=== PATIENT | female | born 1980 | race Two or more races ===

== ENCOUNTER 2024-12-02 14:47 | Inpatient (IN) | payer MEDICAID ==
[~2024-12-02] VITALS: Ht 175.3 cm; Wt 73.0 kg
--- NOTE | 2024-12-02 15:40 | ED.PDOC ---
History of Present Illness HPI Comments Patient is a 44-year-old female without any significant past medical history presented to the ED with a chief complaint of 2 days of abdominal pain. Patient reports with the pain is mostly in the left lower quadrant, radiating to the left lower flank and in the suprapubic area started Sunday night associated with multiple episodes of watery diarrhea, no blood in the stool was reported. Patient did have associated nausea and vomiting initially nonbilious, nonbloody. She denied any fever or chills. No recent sick contacts, no recent antibiotic use. Patient denied any history of abdominal surgeries before with a bilateral tubal ligation. On arrival to the ED patient had a temperature of 99.3 F, tachycardic with heart rate 114 and blood pressure 130/78 mmHg. Chief Complaint: Abdominal Pain Time Seen by MD: 15:02 Allergies: Coded Allergies: NO KNOWN ALLERGIES (Unverified , 12/02/24) Past Medical History PAST MEDICAL HISTORY: Denies Surgical History: BTL BAND DIRECTOR History: No Pertinent BAND DIRECTOR History Family History Family History: Reviewed,noncontributory to illness, No family hx of Cancer, No family hx of DM, No family hx of Heart nba, No family hx of HTN, No family hx ofKidney nba, No family hx of Liver nba, No family hx of Lung nba, No family hx of Stroke Social History Smoker: Non-Smoker Alcohol: Occasionally Drugs: Denies Drug Use Lives In: Home Constitutional: denies: chills, diaphoresis, fatigue, fever, malaise, sweats, weakness, others EENTM: denies: blurred vision, double vision, ear bleeding, ear discharge, ear drainage, ear pain, ear ringing, eye pain, eye redness, hearing loss, mouth pain, mouth swelling, nasal discharge, nose bleeding, nose congestion, nose pain, photophobia, tearing, throat pain, throat swelling, voice changes, others Respiratory: denies: cough, hemoptysis, orthopnea, SOB at rest, shortness of breath, SOB with excertion, stridor, wheezing, others Cardiovascular: denies: chest pain, dizzy spells, diaphoresis, Dyspnea on exertion, edema, irregular heart beat, left arm pain, lightheadedness, palpitations, PND, syncope, others Gastrointestinal: reports: abdominal pain, diarrhea, nausea, vomiting Genitourinary: denies: abnormal vagina bleeding, burning, dyspareunia, dysuria, flank pain, frequency, hematuria, incontinence, pain, , vagina discharge, urgency, others Neurological: denies: dizziness, fainting, headache, left sided numbness, left sided weakness, numbness, paresthesia, pre-existing deficit, right sided numbness, right sided weakness, seizure, speech problems, tingling, tremors, weakness, others Musculoskeletal: denies: back pain, gout, joint pain, joint swelling, muscle pain, muscle stiffness, neck pain, others Integumetry: denies: bruises, change in color, change in hair/nails, dryness, laceration, lesions, lumps, rash, wounds, others Allergic/Immunocompromised: denies: Difficulty Healing, Frequent Infections, Hives, Itching, others Hematologic/Lymphatic: denies: anemia, blood clots, easy bleeding, easy bruising, swollen glands, others Endocrine: denies: excessive hunger, excessive sweating, excessive thirst, excessive urination, flushing, intolerance to cold, intolerance to heat, unexplained weight gain, unexplained weight loss, others Psychiatric: denies: anxiety, bipolar disorder, depression, hopeless, panic disorder, schizophrenia, sleepless, suicidal, others Physical Exam General Appearance: Mild Distress HEENT: Normal ENT Inspection, Pharynx Normal, TMs Normal Neck: Full Range of Motion, Non-Tender, Normal, Normal Inspection Respiratory: Chest Non-Tender, Lungs Clear, No Accessory Muscle Use, No Respiratory Distress, Normal Breath Sounds Cardiovascular: No Edema, No JVD, No Murmur, No Gallop, Normal Peripheral Pulses, Regular Rate/Rhythm Breast Exam: Deferred Gastrointestinal: Guarding, LLQ, Suprapubic, Tenderness Genitalia: Deferred Pelvic: Deferred Rectal: Deferred Extremities: No calf tenderness, Normal capillary refill, Normal inspection, Normal range of motion, Non-tender, No pedal edema Neurologic: Alert, med spa manager II-XII nml as Tested, No Motor Deficits, Normal Affect, Normal Mood, No Sensory Deficits Cerebellar Function: Normal Reflexes: Normal Skin: Dry, Normal Color, Warm Peripheral Pulses: 2+ carotid (R), 2+ carotid (L), 2+ femoral (R), 2+ femoral (L), 2+ dorsalis pedis (R), 2+ dorsalis pedis (L), 2+ Radial (R), 2+ Radial (L) Lymphatic: No Adenopathy Was a procedure done? Was a procedure done?: No Differential Dx Considerations may include: Acute diverticulitis, acute colitis, gastroenteritis, intraperitoneal abscess X-Ray, Labs, Meds, VS Vital Signs Date Time Temp Pulse Resp B/P (MAP) Pulse Ox O2 Delivery O2 Flow Rate FiO2 12/02/24 15:10 99.3 114 18 130/78 (95) 98 99.3 Lab Test 12/02/24 15:54 12/02/24 14:50 Range/Units White Blood Count 16.6 H 4.4-10.8 10^3/uL Red Blood Count 4.71 4.0-5.20 10^6/uL Hemoglobin 14.4 12.2-16.2 g/dL Hematocrit 43.8 36.0-46.0 % Mean Corpuscular Volume 93.2 80.0-100.0 fL Mean Corpuscular Hemoglobin 30.6 28.0-32.0 pg Mean Corpuscular Hemoglobin Concent 32.8 32.0-36.0 g/dL Red Cell Distribution Width 13.9 11.8-14.3 % Platelet Count 300 140-450 10^3/uL Mean Platelet Volume 10.0 6.9-10.8 fL Neutrophils (%) (Auto) 81.0 H 37.0-80.0 % Lymphocytes (%) (Auto) 10.8 10.0-50.0 % Monocytes (%) (Auto) 7.8 0.0-12.0 % Eosinophils (%) (Auto) 0.1 0.0-7.0 % Basophils (%) (Auto) 0.3 0.0-2.0 % Neutrophils # (Auto) 13.4 H 1.6-8.6 10 ^3/uL Lymphocytes # (Auto) 1.8 0.4-5.4 10 ^3/uL Monocytes # (Auto) 1.3 0-1.3 10 ^3/uL Eosinophils # (Auto) 0 0-0.8 10 ^3/uL Basophils # (Auto) 0.1 0-0.2 10 ^3/uL Nucleated Red Blood Cells 0.0 % Sodium Level 138 136-145 mmol/L Potassium Level 3.6 3.5-5.1 mmol/L Chloride Level 105 98-107 mmol/L Carbon Dioxide Level 25 20-31 mmol/L Anion Gap 8 5-15 Blood Urea Nitrogen 7 L 9-23 mg/dL Creatinine 0.85 0.550-1.02 mg/dL Glomerular Filtration Rate Calc 86 >90 mL/min BUN/Creatinine Ratio 8.2 L 10.0-20.0 Serum Glucose 99 74-106 mg/dL Lactic Acid Level 0.8 0.4-2.0 mmol/L Calcium Level 10.1 8.7-10.4 mg/dL Beta HCG, Quantitative 0.6 L 1.5-4.2 mIU/mL Urine Color Yellow Yellow Urine Clarity Turbid H Clear Urine pH 6.0 5.0-9.0 Urine Specific [place] 1.029 1.001-1.035 Urine Protein Trace H Negative Urine Ketones 3+ H Negative Urine Blood Trace H Negative /uL Urine Nitrite Negative Negative Urine Bilirubin Negative Negative Urine Urobilinogen 2 H Negative mg/dL Urine Leukocyte Esterase Negative Negative /uL Urine RBC 4 0 - 4 /hpf Urine Microscopic WBC 2 0-5 /HPF Urine Squamous Epithelial Cells Few <5 /hpf Urine Bacteria Few H None Seen /hpf Urine Mucus Few None Seen Urine Glucose Normal Normal mg/dL Urine Test Negative Negative Patient 44-year-old female without any significant medical history presented to the ED with 2 days of abdominal pain in the left lower quadrant associated with diarrhea and nausea and vomiting. CT abdomen pelvis without contrast was ordered along with initial labs including CBC, BMP, urinalysis. CBC showed elevated WBC count with left shift, CT showed acute sigmoid diverticulitis with possible microperforation. Patient was put NPO, IV fluids, IV antibiotics with ceftriaxone and metronidazole and surgical consultation was placed. Patient was explained about her diagnosis and treatment and agreed to being admitted for further management. Time of 1ST Reevaluation: 19:30 Reevaluation 1ST: Unchanged Patient Education/Counseling: Diagnosis, Treatment Family Education/Counseling: No Family Present SEPSIS Sepsis Screen Physician Orders Ct Ab Pel Wo Con-No Oral Or Iv (12/02/24 15:26) Heplock Iv (12/02/24 ) Ceftriaxone 1gm/50ml D5w (Rocephin) (12/02/24 19:30) Metronidazole 500mg/100ml (Flagyl 500mg/ (12/02/24 19:30) Sodium Chloride 0.9% (12/02/24 19:30) Npo (Nothing By Mouth) Diet (12/03/24 Breakfast) * Surgical Consult (12/02/24 ) Vital Signs Date Time Temp Pulse Resp B/P (MAP) Pulse Ox O2 Delivery O2 Flow Rate FiO2 12/02/24 15:10 99.3 114 18 130/78 (95) 98 99.3 Laboratory Tests Test 12/02/24 15:54 Lactic Acid Level 0.8 mmol/L (0.4-2.0) White Blood Count 16.6 10^3/uL (4.4-10.8) H Departure 1 Departure Time of Disposition: 19:51 Impression: Primary Impression: Diverticulitis of intestine Additional Impression: Diverticulitis large intestine Disposition: ADMITTED INPATIENT Condition: Stable Critical Care Note Critical Care Time?: No Stability Stability form required: No Heart Score Heart Score: Heart Score Response (Comments) Value History N/A 0 EKG N/A 0 Age N/A 0 Risk Factors N/A 0 Troponin N/A 0 Total 0 CLAY MANZANARES RESIDENT Dec 02, 2024 15:40
[2024-12-02 16:09] LABS: Hematocrit 43.8 % (36.0-46.0); Hemoglobin 14.4 g/dL (12.2-16.2); Mean Corpuscular Hemoglobin 30.6 pg (28.0-32.0); Mean Corpuscular Volume 93.2 fL (80.0-100.0); Nucleated Red Blood Cells % 0.0 %
[2024-12-02 16:18] LABS: Chloride 105 mmol/L (98-107); Potassium 3.6 mmol/L (3.5-5.1); Sodium 138 mmol/L (136-145)
[2024-12-02 16:19] LABS: Anion Gap 8 (5-15); Calcium 10.1 mg/dL (8.7-10.4); Carbon Dioxide 25 mmol/L (20-31)
[2024-12-02 16:24] LABS: BUN/Creatinine Ratio 8.2 (10.0-20.0); Glucose 99 mg/dL (74-106)
[2024-12-02 16:26] LABS: Blood Urea Nitrogen 7 mg/dL (9-23)
[2024-12-02 18:17] LABS: Urine Protein, UAD TRACE (Negative)
--- NOTE | 2024-12-02 19:21 | DVH ---
Exam: CT CT AB PEL WO CON-NO ORAL OR IV History: LLQ, suprapubic pain , diarrhoea Comparison Study: None TECHNIQUE: Multidetector CT of the abdomen was performed from lung bases to pubic symphysis. Imaging was performed without IV contrast. Axial, coronal and sagittal multiplanar reformats were obtained fr om the axial data set by the technologist. Radiation Dose Information: CT Dose: CTDI volume is 8.97 mGy. Dose-length product is 476.35 mGy*cm FINDINGS: Evaluation of solid organs is limited due to lack of intravenous contrast use. Findings: Lung Bases: No acute or significant lung base finding. Normal heart size. No pleural or pericardial effusion. Liver: The liver is normal in size. No focal lesions. Gallbladder and Biliary Tree: Unremarkable Spleen: Unremarkable Pancreas: The pancreas is grossly normal in appearance. Adrenal Glands: Unremarkable Kidneys: Kidneys are grossly normal without calculi or hydronephrosis. Bladder: Grossly unremarkable for degree of distention. Bowel: The stomach is grossly normal in appearance. Acute sigmoid colon diverticulitis with extensive adjacent stranding and possible microperforation. No bowel obstruction, definite rupture, or adjacen t abscess. There is extensive underlying colonic diverticulosis. Normal appendix. Ascites: Absent Lymphadenopathy: No mesenteric, retroperitoneal or periportal lymphadenopathy. Abdominal Wall and Mesentery: Unremarkable. Vasculature: The visualized abdominal aorta is normal in size and caliber. Evaluation of abdominal a nd pelvic vessels is limited due to lack of intravenous contrast. Pelvic Organs: Unremarkable. trace pelvic free fluid. Musculoskeletal: No aggressive focal bony lesions, acute fractures or dislocation. Soft tissues: Unremarkable IMPRESSION: 1. Acute sigmoid colon diverticulitis with extensive adjacent stranding and possible microperforation . No bowel obstruction, definite rupture, or adjacent abscess. There is extensive underlying colonic diverticulosis. Radiation optimization: All CT scans at this facility use at least one of these dose optimization dion hniques: automated exposure control mA and/or kV adjustment per patient size (includes targeted exam s where dose is matched to clinical indication) or iterative reconstruction.
[2024-12-02] MEDS: cefTRIAXone 1GM/50ML D5W 50 ML IV ONE (20:18)
[2024-12-02] MEDS: SODIUM CHLORIDE 0.9% 1,000 ML IV ONE ×2 (20:19→20:47)
[2024-12-02] MEDS: MORPHINE SULFATE INJ 2 MG/ml SYRG IV PRN (22:51)
[2024-12-02] MEDS: ONDANSETRON HCL 4 MG/2 ML VIAL IV PRN (22:52)
[2024-12-03] VITALS (7 sets, daily range): BP systolic 105–121; BP diastolic 59–70; PULSE 75–89; RESP 16–20; TEMP 97.9–98.4; O2SAT 95–100
--- NOTE | 2024-12-03 01:15 | DVHHP2 ---
History of Present Illness Reason for Visit: Abdominal pain History of Present Illness 44-year-old female presents for evaluation of abdominal pain. Patient presents with a two day history of sharp left lower quadrant abdominal pain with associated diarrhea, nausea and vomiting. No fever or chills. No other acute complaints reported. Past Medical History Denies Past Surgical History BTL Family History Noncontributory Smoke: No ALCOHOL: none Drugs: None Lives: with Family Review of Systems Review of Systems Review of systems are currently negative otherwise addressed in HPI. Allergies: Coded Allergies: NO KNOWN ALLERGIES (Unverified , 12/02/24) Medications Current Medications Medications Dose Ordered Sig/Roderick Route Start Time Stop Time Status Last Admin Dose Admin Ceftriaxone Sodium 50 ml @ 100 mls/hr DAILY@09 IV 12/03/24 09:00 Metronidazole 100 ml @ 100 mls/hr Q8HR IV 12/03/24 06:00 Pantoprazole Sodium 40 mg DAILY IV 12/03/24 10:00 Ondansetron HCl 4 mg Q4HP PRN IV 12/02/24 20:15 12/02/24 22:52 4 MG Morphine Sulfate 2 mg Q4HPRN PRN IV 12/02/24 20:15 12/02/24 22:51 2 MG Exam Vital Signs Vital Signs Date Time Temp Pulse Resp B/P (MAP) Pulse Ox O2 Delivery O2 Flow Rate FiO2 12/02/24 23:33 92 16 137/69 12/02/24 23:29 90.0 98 90.0 12/02/24 22:38 Room Air Exam Gen: 44-year-old female in mild distress Skin: Warm, dry, normal color and texture, no rash. HEENT: Normocephalic atraumatic, mucous membranes moist and pink. Neck: Cervical and supraclavicular nodes normal without enlargement, trachea is midline, thyroid gland is normal without masses. Pulmonary: Clear to auscultation and percussion bilaterally. Cardiac: Regular rate and rhythm. No murmur Abdomen: Soft, left lower quadrant tenderness, nondistended, bowel sounds present all 4 quadrants, no guarding, no rigidity, no organomegaly. Extremities: No cyanosis, clubbing, no edema Neuro: Cranial nerves II through XII grossly intact, normal affect and speech, no focal motor deficits. Labs/Xrays AGE / SEX: 44 / F ADM STATUS: REG ER SERVICE [id number] ORDERING PHYSICIAN: CLAY MANZANARES RESIDENT PROCEDURE(s): ABPL - CT AB PEL WO CON-NO ORAL OR IV REASON: LLQ, suprapubic pain , diarrhoea ORDER NUMBER(s): [id number], ACCESSION NUMBER(s): [id number] Exam: CT CT AB PEL WO CON-NO ORAL OR IV History: LLQ, suprapubic pain , diarrhoea Comparison Study: None TECHNIQUE: Multidetector CT of the abdomen was performed from lung bases to pubic symphysis. Imaging was performed without IV contrast. Axial, coronal and sagittal multiplanar reformats were obtained from the axial data set by the technologist. Radiation Dose Information: CT Dose: CTDI volume is 8.97 mGy. Dose-length product is 476.35 mGy*cm FINDINGS: Evaluation of solid organs is limited due to lack of intravenous contrast use. Findings: Lung Bases: No acute or significant lung base finding. Normal heart size. No pleural or pericardial effusion. Liver: The liver is normal in size. No focal lesions. Gallbladder and Biliary Tree: Unremarkable Spleen: Unremarkable Pancreas: The pancreas is grossly normal in appearance. Adrenal Glands: Unremarkable Kidneys: Kidneys are grossly normal without calculi or hydronephrosis. Bladder: Grossly unremarkable for degree of distention. Bowel: The stomach is grossly normal in appearance. Acute sigmoid colon diverticulitis with extensive adjacent stranding and possible microperforation. No bowel obstruction, definite rupture, or adjacent abscess. There is extensive underlying colonic diverticulosis. Normal appendix. Ascites: Absent Lymphadenopathy: No mesenteric, retroperitoneal or periportal lymphadenopathy. Abdominal Wall and Mesentery: Unremarkable. Vasculature: The visualized abdominal aorta is normal in size and caliber. Evaluation of abdominal and pelvic vessels is limited due to lack of intravenous contrast. Pelvic Organs: Unremarkable. trace pelvic free fluid. Musculoskeletal: No aggressive focal bony lesions, acute fractures or dislocation. Soft tissues: Unremarkable IMPRESSION: 1. Acute sigmoid colon diverticulitis with extensive adjacent stranding and possible microperforation. No bowel obstruction, definite rupture, or adjacent abscess. There is extensive underlying colonic diverticulosis. Radiation optimization: All CT scans at this facility use at least one of these dose optimization techniques: automated exposure control mA and/or kV adjustment per patient size (includes targeted exams where dose is matched to clinical indication) or iterative reconstruction. Labs Test 12/02/24 15:54 12/02/24 14:50 Range/Units White Blood Count 16.6 H 4.4-10.8 10^3/uL Red Blood Count 4.71 4.0-5.20 10^6/uL Hemoglobin 14.4 12.2-16.2 g/dL Hematocrit 43.8 36.0-46.0 % Mean Corpuscular Volume 93.2 80.0-100.0 fL Mean Corpuscular Hemoglobin 30.6 28.0-32.0 pg Mean Corpuscular Hemoglobin Concent 32.8 32.0-36.0 g/dL Red Cell Distribution Width 13.9 11.8-14.3 % Platelet Count 300 140-450 10^3/uL Mean Platelet Volume 10.0 6.9-10.8 fL Neutrophils (%) (Auto) 81.0 H 37.0-80.0 % Lymphocytes (%) (Auto) 10.8 10.0-50.0 % Monocytes (%) (Auto) 7.8 0.0-12.0 % Eosinophils (%) (Auto) 0.1 0.0-7.0 % Basophils (%) (Auto) 0.3 0.0-2.0 % Neutrophils # (Auto) 13.4 H 1.6-8.6 10 ^3/uL Lymphocytes # (Auto) 1.8 0.4-5.4 10 ^3/uL Monocytes # (Auto) 1.3 0-1.3 10 ^3/uL Eosinophils # (Auto) 0 0-0.8 10 ^3/uL Basophils # (Auto) 0.1 0-0.2 10 ^3/uL Nucleated Red Blood Cells 0.0 % Sodium Level 138 136-145 mmol/L Potassium Level 3.6 3.5-5.1 mmol/L Chloride Level 105 98-107 mmol/L Carbon Dioxide Level 25 20-31 mmol/L Anion Gap 8 5-15 Blood Urea Nitrogen 7 L 9-23 mg/dL Creatinine 0.85 0.550-1.02 mg/dL Glomerular Filtration Rate Calc 86 >90 mL/min BUN/Creatinine Ratio 8.2 L 10.0-20.0 Serum Glucose 99 74-106 mg/dL Lactic Acid Level 0.8 0.4-2.0 mmol/L Calcium Level 10.1 8.7-10.4 mg/dL Beta HCG, Quantitative 0.6 L 1.5-4.2 mIU/mL Urine Color Yellow Yellow Urine Clarity Turbid H Clear Urine pH 6.0 5.0-9.0 Urine Specific [place] 1.029 1.001-1.035 Urine Protein Trace H Negative Urine Ketones 3+ H Negative Urine Blood Trace H Negative /uL Urine Nitrite Negative Negative Urine Bilirubin Negative Negative Urine Urobilinogen 2 H Negative mg/dL Urine Leukocyte Esterase Negative Negative /uL Urine RBC 4 0 - 4 /hpf Urine Microscopic WBC 2 0-5 /HPF Urine Squamous Epithelial Cells Few <5 /hpf Urine Bacteria Few H None Seen /hpf Urine Mucus Few None Seen Urine Glucose Normal Normal mg/dL Urine Test Negative Negative Assessment/Plan Assessment/Plan Assessment Acute abdominal pain Acute diverticulitis with possible microperforation Leukocytosis Plan Admit the patient to [facility] to the hospitalist Surgical consult Rocephin/Flagyl NPO Maintenance IV fluids Pain management Continue treatment per orders. Plan discussed with: Patient My Orders Orders - ZULLY BOCANEGRA Procedure Category Date Status Time Admit ADMIT 12/02/24 Transmitted 19:56 Ceftriaxone 1gm/50ml PHA 12/03/24 In Process D5w (Rocephin) 09:00 D5w/Sod Chlo 0.9% PHA 12/02/24 In Process (D5w Ns 0.9%) 20:15 Pantoprazole PHA 12/03/24 In Process (Protonix) 10:00 Basic Metabolic Panel LAB 12/03/24 Logged 04:00 Ondansetron Hcl PHA 12/02/24 In Process (Zofran) 20:15 Complete Blood Count LAB 12/03/24 Logged 04:00 Condition: Stable MIRIAM 12/02/24 In Process 20:02 Bedrest With Bathroom MIRIAM 12/02/24 In Process Privileg 20:02 Morphine Sulfate PHA 12/02/24 In Process Injection 20:15 Metronidazole PHA 12/03/24 In Process 500mg/100ml (Flagyl 06:00 Date of Service: Dec 02, 2024 Billing Provider: ZULLY BOCANEGRA Common Visit Codes: [id number] INP/OBS CARE (MOD) ZULLY BOCANEGRA [facility] Dec 03, 2024 01:15
[2024-12-03] MEDS: D5W/SOD CHLO 0.9% 1,000 ML IV ONE (02:15)
[2024-12-03 04:52] LABS: Hematocrit 36.6 % (36.0-46.0); Hemoglobin 12.2 g/dL (12.2-16.2); Mean Corpuscular Hemoglobin 31.1 pg (28.0-32.0); Mean Corpuscular Volume 93.0 fL (80.0-100.0); Nucleated Red Blood Cells % 0.1 %
[2024-12-03 04:56] LABS: Chloride 106 mmol/L (98-107); Potassium 3.5 mmol/L (3.5-5.1); Sodium 139 mmol/L (136-145)
[2024-12-03 05:02] LABS: Glucose 98 mg/dL (74-106)
[2024-12-03 05:03] LABS: Calcium 8.6 mg/dL (8.7-10.4)
[2024-12-03 05:21] LABS: BUN/Creatinine Ratio 11.1 (10.0-20.0)
[2024-12-03 05:24] LABS: Blood Urea Nitrogen 8 mg/dL (9-23)
[2024-12-03 05:50] LABS: Anion Gap 9 (5-15); Carbon Dioxide 24 mmol/L (20-31)
[2024-12-03] MEDS: PANTOPRAZOLE 40 MG/10 ML VIAL INJ IV SCH (08:24)
[2024-12-03] MEDS: cefTRIAXone 1GM/50ML D5W 50 ML IV SCH (08:25)
--- NOTE | 2024-12-03 11:52 | DVHPNRES ---
Progress Note Date Seen: Dec 03, 2024 Resident Creating Document: CATE CEVALLOS RESIDENT Medical Necessity Reason Pt with a Central, PICC or Fol: No Subjective Review of Systems 44-year-old female with no significant past medical history presents for evaluation of 2 day history of Left lower quadrant abdominal pain, which was sudden in onsent and 8-10/10 intensity, radiating to the back associated with watery diarrhea, no stool was reported. She also had nonbloody, vomiting and nausea, and dizziness. She denies any fever, chills, headache. She denies any sick contacts, eating outside and no recent travel. She denies any history of constipation and has regular bowel movements. She denies smoking, drug use, uses weed gummies and drinks socially 2 glasses of wine per week. Surgery was consulted. Objective vital signs Vital Sign Date Time Temp Pulse Resp B/P (MAP) Pulse Ox O2 Delivery O2 Flow Rate FiO2 12/03/24 08:31 98.1 89 16 113/63 (80) 98.1 12/03/24 05:00 98 12/03/24 02:22 Room Air* 0 21 Total Intake and Output 12/02/24 12/02/24 12/03/24 15:00 23:00 07:00 Intake Total 2150 ml 100 ml Output Total 2 ml Balance 2150 ml 98 ml medications Current Medications Medications Dose Ordered Sig/Roderick Route Start Time Stop Time Status Last Admin Dose Admin Ceftriaxone Sodium 50 ml @ 100 mls/hr DAILY@09 IV 12/03/24 09:00 12/03/24 08:25 100 MLS/HR Metronidazole 100 ml @ 100 mls/hr Q8HR IV 12/03/24 06:00 12/03/24 05:34 100 MLS/HR Pantoprazole Sodium 40 mg DAILY IV 12/03/24 10:00 12/03/24 08:24 40 MG Ondansetron HCl 4 mg Q4HP PRN IV 12/02/24 20:15 12/02/24 22:52 4 MG Morphine Sulfate 2 mg Q4HPRN PRN IV 12/02/24 20:15 12/03/24 08:25 2 MG Dextrose/Sodium Chloride 1,000 ml @ 100 mls/hr Q10H IV 12/03/24 11:30 UNV laboratory and microbiology Laboratory Tests 12/03/24 04:24 Test 12/03/24 04:24 Range/Units Serum Glucose 98 74-106 mg/dL Problem List/Assessment/Plan Problem List/Assessment/Plan #Acute abdominal pain #Acute diverticulitis with possible microperforation #Leukocytosis rule out SIRS - CT Abd/pelvis- Acute sigmoid colon diverticulitis with extensive adjacent stranding and possible microperforation. No bowel obstruction, definite rupture, or adjacent abscess. There is extensive underlying colonic diverticulosis. - patient is NPO - Iv fluids given - Pending surgical consult - IV Ceftriaxone - IV Metronidazolw - Pain managment PUD PPX: Protonix DVT PPX: Abulatory Plan discussed with patient for 23 mins: Full code Case discussed with Dr. Dow Plan discussed with: Patient Date of Service: Dec 03, 2024 Billing Provider: HAZEL DOW MD Common Visit Codes: [id number] INP/OBS CARE(HIGH) CATE CEVALLOS RESIDENT Dec 03, 2024 11:52 HAZEL DOW MD Dec 03, 2024 16:31
[2024-12-03] MEDS: D5W/SOD CHL 0.45% 1,000 ML IV SCH (13:50)
[2024-12-03 19:16] LABS: Hematocrit 37.1 % (36.0-46.0); Hemoglobin 12.5 g/dL (12.2-16.2); Mean Corpuscular Hemoglobin 31.3 pg (28.0-32.0); Mean Corpuscular Volume 93.2 fL (80.0-100.0); Nucleated Red Blood Cells % 0.0 %
[2024-12-03 19:24] LABS: Chloride 107 mmol/L (98-107); Potassium 3.6 mmol/L (3.5-5.1); Sodium 140 mmol/L (136-145)
[2024-12-03 19:25] LABS: Anion Gap 9 (5-15); Calcium 9.4 mg/dL (8.7-10.4); Carbon Dioxide 24 mmol/L (20-31)
[2024-12-03 19:30] LABS: BUN/Creatinine Ratio 7.6 (10.0-20.0); Glucose 98 mg/dL (74-106)
[2024-12-03 19:32] LABS: Blood Urea Nitrogen 5 mg/dL (9-23)
[2024-12-04] VITALS (7 sets, daily range): BP systolic 102–123; BP diastolic 66–78; PULSE 70–82; RESP 18; TEMP 97.9–98.6; O2SAT 96–100
[2024-12-04] MEDS: KETOROLAC TROMETH 30 MG/ML 1ML VIAL IV PRN (11:00)
--- NOTE | 2024-12-04 11:18 | DVHPNRES ---
Progress Note Date Seen: Dec 04, 2024 Resident Creating Document: CATE CEVALLOS RESIDENT Medical Necessity Reason Pt with a Central, PICC or Fol: No Subjective Review of Systems 44-year-old female with no significant past medical history presents for evaluation of 2 day history of Left lower quadrant abdominal pain, which was sudden in onsent and was 8-10/10 intensity, radiating to the back associated with watery diarrhea, no stool was reported. She also had nonbloody, vomiting and nausea, and dizziness. She denies any fever, chills, headache. She denies any sick contacts, eating outside and no recent travel. She denies any history of constipation and has regular bowel movements. Surgery was consulted. Patient seen at bedside. Patient reports she feels much better than yesterday. Patient reports of nausea, dizziness today, and mild left lower quadrant pain on palpation which is stabbing in nature and "comes and goes". last bowel movement was 2 days ago. Awaiting Surgical consultation. Objective vital signs Vital Sign Date Time Temp Pulse Resp B/P (MAP) Pulse Ox O2 Delivery O2 Flow Rate FiO2 12/04/24 09:00 98.2 78 18 110/73 (85) 100 98.2 12/04/24 07:39 Room Air* 0 21 Total Intake and Output 12/03/24 12/03/24 12/04/24 15:00 23:00 07:00 Intake Total 150 ml 800 ml Balance 150 ml 800 ml medications Current Medications Medications Dose Ordered Sig/Roderick Route Start Time Stop Time Status Last Admin Dose Admin Ceftriaxone Sodium 50 ml @ 100 mls/hr DAILY@09 IV 12/03/24 09:00 12/04/24 08:31 100 MLS/HR Metronidazole 100 ml @ 100 mls/hr Q8HR IV 12/03/24 06:00 12/04/24 05:16 100 MLS/HR Pantoprazole Sodium 40 mg DAILY IV 12/03/24 10:00 12/04/24 08:30 40 MG Ondansetron HCl 4 mg Q4HP PRN IV 12/02/24 20:15 12/04/24 08:30 4 MG Dextrose/Sodium Chloride 1,000 ml @ 100 mls/hr Q10H IV 12/03/24 11:30 12/04/24 05:17 100 MLS/HR Ketorolac Tromethamine 15 mg Q6HPRN PRN IV 12/04/24 10:00 12/09/24 09:59 12/04/24 11:00 15 MG Examination General: Patient alert and oriented in person, place and time. Patient following commands. HEENT: Normocephalic, atraumatic, moist mucous membranes Respiratory/pulmonary: Clear lungs bilaterally, vesicular murmurs present in almost all lung de, no associated crackles or wheezes. Cardiovascular: Normal heart sounds S1 and S2 with no associated murmurs Abdomen: Abdomen nondistended, there is mild pain to palpation in Left lower Quadrant ,no palpable masses. Extremities: There is no peripheral edema present at the lower extremities. Peripheral Pulses: 3+ Radial (R). 3+ Radial (L). 3+ Dorsalis pedis (R). 3+ Dorsalis pedis(L) Skin: No rashes or pruritus, there is no sacral edema present at this time. Neurological: Intact cranial nerves with no focal neurologic deficits Nurse was there as a weight reduction specialist during examination laboratory and microbiology Laboratory Tests 12/03/24 19:02 Test 12/03/24 19:02 Range/Units Serum Glucose 98 74-106 mg/dL Labs and/or images reviewed: Labs reviewed by me, Image(s) reviewed by me Problem List/Assessment/Plan Problem List/Assessment/Plan #Acute abdominal pain likely from below #Acute diverticulitis with possible microperforation #Leukocytosis rule out SIRS - CT Abd/pelvis- Acute sigmoid colon diverticulitis with extensive adjacent stranding and possible microperforation. No bowel obstruction, definite rupture, or adjacent abscess. There is extensive underlying colonic diverticulosis. - patient is NPO - Iv fluids given - Pending surgical consult - IV Ceftriaxone - IV Metronidazole - Pain management as needed PUD PPX: Protonix DVT PPX: Ambulatory Goals of care discussed with patient for 20 min: Full code Case discussed with Dr. Hazel Plan discussed with: Patient, Other (RN) My Orders My Orders Orders - CATE CEVALLOS RESIDENT Procedure Category Date Status Time Ketorolac Injection PHA 12/04/24 In Process (Toradol Injection) 10:00 Dietary Evaluation Review Comments: 1) TPN if NPO >7 days 2) Advance to regular diet as medically feasible Expected Outcomes/Goals: To meet at least 75% estimated needs within 7 days GI symptoms to improve FU 2-3 days Addendum Addendum Addendum I was physically present for the yanez portions of the service provided to patient by THE RESIDENT. I have reviewed the documentation, discussed the case with resident and agree with the resident's documentation except as noted. Also the patient's clinical case was discussed with the patient's nurse. This medical document was created using an electronic medical record system with computerized dictation system. Although this document has been carefully reviewed, there might still be some phonetic and typographical errors. These areas are purely typographical due to imperfections of the software programs, and do not reflect any compromise in the patient's medical care. Late signature. Date of Service: Dec 04, 2024 Billing Provider: ALBERT HAZEL MD Common Visit Codes: [id number] INP/OBS CARE(HIGH) Secondary Visit Codes: [id number] CARE PLAN 30 MINUTES (20 minutes) CATE CEVALLOS RESIDENT Dec 04, 2024 11:18 ALBERT HAZEL MD Dec 05, 2024 04:26
--- NOTE | 2024-12-04 18:10 | DVHINCON2 ---
Date of service: Dec 04, 2024 Family History: Patient reports no known family medical history. Allergies: Coded Allergies: NO KNOWN ALLERGIES (Unverified , 12/02/24) Home Meds No Active Prescriptions or Reported Meds Current Medications Current Medications Medications (Trade) Dose Ordered Sig/Roderick Route PRN Reason Start Time Stop Time Status Last Admin Ketorolac Tromethamine (Toradol Injection) 15 mg Q6HPRN PRN IV MODERATE PAIN (4-6 PAIN SCALE) 12/04/24 10:00 12/09/24 09:59 12/04/24 11:00 Vital Signs Vital Signs Date Time Temp Pulse Resp B/P (MAP) Pulse Ox O2 Delivery O2 Flow Rate FiO2 12/04/24 17:00 98.0 77 18 108/66 (80) 98 98.0 12/04/24 07:39 Room Air* 0 21 Labs/Diagnostic Data Labs Test 12/03/24 19:02 12/02/24 15:54 12/02/24 14:50 Range/Units White Blood Count 8.2 4.4-10.8 10^3/uL Red Blood Count 3.98 L 4.0-5.20 10^6/uL Hemoglobin 12.5 12.2-16.2 g/dL Hematocrit 37.1 36.0-46.0 % Mean Corpuscular Volume 93.2 80.0-100.0 fL Mean Corpuscular Hemoglobin 31.3 28.0-32.0 pg Mean Corpuscular Hemoglobin Concent 33.6 32.0-36.0 g/dL Red Cell Distribution Width 13.4 11.8-14.3 % Platelet Count 258 140-450 10^3/uL Mean Platelet Volume 9.8 6.9-10.8 fL Neutrophils (%) (Auto) 67.5 37.0-80.0 % Lymphocytes (%) (Auto) 22.9 10.0-50.0 % Monocytes (%) (Auto) 7.9 0.0-12.0 % Eosinophils (%) (Auto) 1.2 0.0-7.0 % Basophils (%) (Auto) 0.5 0.0-2.0 % Neutrophils # (Auto) 5.5 1.6-8.6 10 ^3/uL Lymphocytes # (Auto) 1.9 0.4-5.4 10 ^3/uL Monocytes # (Auto) 0.6 0-1.3 10 ^3/uL Eosinophils # (Auto) 0.1 0-0.8 10 ^3/uL Basophils # (Auto) 0 0-0.2 10 ^3/uL Nucleated Red Blood Cells 0.0 % Sodium Level 140 136-145 mmol/L Potassium Level 3.6 3.5-5.1 mmol/L Chloride Level 107 98-107 mmol/L Carbon Dioxide Level 24 20-31 mmol/L Anion Gap 9 5-15 Blood Urea Nitrogen 5 L 9-23 mg/dL Creatinine 0.66 0.550-1.02 mg/dL Glomerular Filtration Rate Calc 110 >90 mL/min BUN/Creatinine Ratio 7.6 L 10.0-20.0 Serum Glucose 98 74-106 mg/dL Calcium Level 9.4 8.7-10.4 mg/dL Lactic Acid Level 0.8 0.4-2.0 mmol/L Beta HCG, Quantitative 0.6 L 1.5-4.2 mIU/mL Urine Color Yellow Yellow Urine Clarity Turbid H Clear Urine pH 6.0 5.0-9.0 Urine Specific [place] 1.029 1.001-1.035 Urine Protein Trace H Negative Urine Ketones 3+ H Negative Urine Blood Trace H Negative /uL Urine Nitrite Negative Negative Urine Bilirubin Negative Negative Urine Urobilinogen 2 H Negative mg/dL Urine Leukocyte Esterase Negative Negative /uL Urine RBC 4 0 - 4 /hpf Urine Microscopic WBC 2 0-5 /HPF Urine Squamous Epithelial Cells Few <5 /hpf Urine Bacteria Few H None Seen /hpf Urine Mucus Few None Seen Urine Glucose Normal Normal mg/dL Urine Test Negative Negative Assessment [id number] AFEBRILE VSS TENDER LLQ SIGMOID DIVERTICULITIS MANAGE CONSERVATIVELY' KEEP NPO IV ABX CLOSE OBSERVATION REPEAT CT SCAN 24 TO 48 TO DETERMINE THE NEED FOR SURGERY OR TO ADVANCE DIET BASED UPON ONGOING EVAL NURSE AT BEDSIDE Plan discussed with: Patient BRADEN GORE MD Dec 04, 2024 18:10
--- NOTE | 2024-12-04 18:12 | DVHINCON2 ---
DATE OF CONSULTATION: 12/04/2024 HISTORY OF PRESENT ILLNESS: This patient is 44 years old coming in with left lower quadrant pain for the past 3-4 days and she is now feeling much better. No nausea or vomiting. No constipation or diarrhea. No fever or chills. PAST MEDICAL HISTORY: No diabetes or hypertension. PAST SURGICAL HISTORY: Tubal ligation. PHYSICAL EXAMINATION: VITAL SIGNS: Afebrile. Stable signs. HEENT: With no evidence of pallor, cyanosis, or jaundice. NECK: Supple and nontender, with no thyromegaly or lymphadenopathy. CHEST AND LUNGS: Clear. HEART: Within normal limits. ABDOMEN: Soft. She is tender in the left lower quadrant with no rebound. EXTREMITIES: Unremarkable. NEUROLOGIC: Intact. CLINICAL IMPRESSION: Acute diverticulitis. PLAN: Plan would be to manage her conservatively and give her intravenous antibiotics and close observation. Consider emergent surgery based upon ongoing evaluation and repeat CT scan of the abdomen and pelvis to determine the need for surgery and/or to advance diet. MD CHAVA Tellez/KYLAH TID: [id number] RECEIPT: [id number] cc: Дмитрий Beaver NP
[2024-12-05] VITALS (7 sets, daily range): BP systolic 107–129; BP diastolic 66–90; PULSE 74–84; RESP 18; TEMP 98–98.4; O2SAT 97–100
--- NOTE | 2024-12-05 14:03 | DVHPN2 ---
Progress Note Date Seen: Dec 05, 2024 Medical Necessity Reason Pt with a Central, PICC or Fol: No Objective vital signs Vital Sign Date Time Temp Pulse Resp B/P (MAP) Pulse Ox O2 Delivery O2 Flow Rate FiO2 12/05/24 13:00 98.1 79 18 123/90 (101) 99 98.1 12/05/24 08:00 Room Air* 0 21 Total Intake and Output 12/04/24 12/04/24 12/05/24 15:00 23:00 07:00 Intake Total 50 ml 100 ml 400 ml Balance 50 ml 100 ml 400 ml medications Current Medications Medications Dose Ordered Sig/Roderick Route Start Time Stop Time Status Last Admin Dose Admin Ceftriaxone Sodium 50 ml @ 100 mls/hr DAILY@09 IV 12/03/24 09:00 12/05/24 09:50 100 MLS/HR Metronidazole 100 ml @ 100 mls/hr Q8HR IV 12/03/24 06:00 12/05/24 06:00 100 MLS/HR Pantoprazole Sodium 40 mg DAILY IV 12/03/24 10:00 12/05/24 09:50 40 MG Ondansetron HCl 4 mg Q4HP PRN IV 12/02/24 20:15 12/04/24 08:30 4 MG Dextrose/Sodium Chloride 1,000 ml @ 100 mls/hr Q10H IV 12/03/24 11:30 12/04/24 05:17 100 MLS/HR Ketorolac Tromethamine 15 mg Q6HPRN PRN IV 12/04/24 10:00 12/09/24 09:59 12/04/24 20:11 15 MG laboratory and microbiology Laboratory Tests 12/03/24 19:02 Test 12/03/24 19:02 Range/Units Serum Glucose 98 74-106 mg/dL Problem List/Assessment/Plan Problem List/Assessment/Plan AFEBRILE VSS ABD SOFT NON TENDER JOSÉ MIGUEL CLEAR LIQUIDS REPEAT CT SCAN ABD AND PELVIS WITH PO CONTRAST Plan discussed with: Patient Dietary Evaluation Review Comments: 1) TPN if NPO >7 days 2) Advance to regular diet as medically feasible Expected Outcomes/Goals: To meet at least 75% estimated needs within 7 days GI symptoms to improve FU 2-3 days BRADEN GORE MD Dec 05, 2024 14:03
--- NOTE | 2024-12-05 16:05 | DVHPNRES ---
Progress Note Date Seen: Dec 05, 2024 Resident Creating Document: CATE CEVALLOS RESIDENT Medical Necessity Reason Pt with a Central, PICC or Fol: No Subjective Review of Systems 44-year-old female with no significant past medical history presents for evaluation of 2 day history of Left lower quadrant abdominal pain, which was sudden in onsent and was 8-10/10 intensity, radiating to the back associated with watery diarrhea, no stool was reported. She also had nonbloody vomiting and nausea, and dizziness. She denies any fever, chills, headache. She denies any sick contacts, eating outside and no recent travel. She denies any history of constipation and has regular bowel movements. Surgery was consulted. Patient was seen at bedside. Patient is comfortable, alert x3, she reports mild nausea and mild left lower quadrant abdominal pain in morning but denies vomiting, headaches, dizziness. Patient has not had a bowel movement since 3 days. Surgery recommended :Repeat CT scan abdominal and pelvis with p.o. contrast Objective vital signs Vital Sign Date Time Temp Pulse Resp B/P (MAP) Pulse Ox O2 Delivery O2 Flow Rate FiO2 12/05/24 13:00 98.1 79 18 123/90 (101) 99 98.1 12/05/24 08:00 Room Air* 0 21 Total Intake and Output 12/04/24 12/04/24 12/05/24 15:00 23:00 07:00 Intake Total 50 ml 100 ml 400 ml Balance 50 ml 100 ml 400 ml medications Current Medications Medications Dose Ordered Sig/Roderick Route Start Time Stop Time Status Last Admin Dose Admin Ceftriaxone Sodium 50 ml @ 100 mls/hr DAILY@09 IV 12/03/24 09:00 12/05/24 09:50 100 MLS/HR Metronidazole 100 ml @ 100 mls/hr Q8HR IV 12/03/24 06:00 12/05/24 14:20 100 MLS/HR Pantoprazole Sodium 40 mg DAILY IV 12/03/24 10:00 12/05/24 09:50 40 MG Ondansetron HCl 4 mg Q4HP PRN IV 12/02/24 20:15 12/05/24 14:20 4 MG Dextrose/Sodium Chloride 1,000 ml @ 100 mls/hr Q10H IV 12/03/24 11:30 12/04/24 05:17 100 MLS/HR Ketorolac Tromethamine 15 mg Q6HPRN PRN IV 12/04/24 10:00 12/09/24 09:59 12/04/24 20:11 15 MG Examination General: Patient alert and oriented in person, place and time. Patient following commands. HEENT: Normocephalic, atraumatic, moist mucous membranes Respiratory/pulmonary: Clear lungs bilaterally, vesicular murmurs present in almost all lung de, no associated crackles or wheezes. Cardiovascular: Normal heart sounds S1 and S2 with no associated murmurs Abdomen: Abdomen nondistended, there is mild pain to palpation in LLQ, no palpable masses. Extremities: There is no peripheral edema present at the lower extremities. Peripheral Pulses: 3+ Radial (R). 3+ Radial (L). 3+ Dorsalis pedis (R). 3+ Dorsalis pedis(L) Skin: No rashes or pruritus, there is no sacral edema present at this time. Neurological: Intact cranial nerves with no focal neurologic deficits laboratory and microbiology Laboratory Tests 12/03/24 19:02 Test 12/03/24 19:02 Range/Units Serum Glucose 98 74-106 mg/dL Labs and/or images reviewed: Labs reviewed by me, Image(s) reviewed by me Problem List/Assessment/Plan Problem List/Assessment/Plan #Acute abdominal pain likely from below #Sepsis due to acute diverticulitis with possible microperforation #Leukocytosis due to sepsis - CT Abd/pelvis- Acute sigmoid colon diverticulitis with extensive adjacent stranding and possible microperforation. No bowel obstruction, definite rupture, or adjacent abscess. There is extensive underlying colonic diverticulosis. - patient changed from NPO to clear liquid diet - Iv fluids given - Surgery was consulted and recommenced REPEAT CT SCAN ABD AND PELVIS WITH PO CONTRAST - IV Ceftriaxone - IV Metronidazole - Pain management as needed PUD PPX: Protonix DVT PPX: Ambulatory Case discussed with Dr. Hazel Plan discussed with: Patient, Other (Nurse) Dietary Evaluation Review Comments: 1) TPN if NPO >7 days 2) Advance to regular diet as medically feasible Expected Outcomes/Goals: To meet at least 75% estimated needs within 7 days GI symptoms to improve FU 2-3 days Addendum Addendum Addendum I was physically present for the yanez portions of the service provided to patient by THE RESIDENT. I have reviewed the documentation, discussed the case with resident and agree with the resident's documentation except as noted. Also the patient's clinical case was discussed with the patient's nurse. This medical document was created using an electronic medical record system with computerized dictation system. Although this document has been carefully reviewed, there might still be some phonetic and typographical errors. These areas are purely typographical due to imperfections of the software programs, and do not reflect any compromise in the patient's medical care. Late signature. Date of Service: Dec 05, 2024 Billing Provider: ALBERT HAZEL MD Common Visit Codes: [id number] INP/OBS CARE(HIGH) CATE CEVALLOS RESIDENT Dec 05, 2024 16:05 ALBERT HAZEL MD Dec 06, 2024 15:06
--- NOTE | 2024-12-05 19:01 | DVH ---
Exam: CT CT AB PEL WITH ORAL CON ONLY History: Abdominal Pain Comparison Study: CT CT AB PEL WO CON-NO ORAL OR IV on DOS: 12/02/24 TECHNIQUE: Multidetector CT of the abdomen was performed from lung bases to pubic symphysis. Imaging was performed without IV contrast. Axial, coronal and sagittal multiplanar reformats were obtained fr om the axial data set by the technologist. Radiation Dose Information: CT Dose: CTDI volume is 8.35 mGy. Dose-length product is 396.87 mGy*cm Oral Omnipaque 1000 mL FINDINGS: Evaluation of solid organs is limited due to lack of intravenous contrast use. Findings: Lung Bases: No acute or significant lung base finding. Normal heart size. No pleural or pericardial effusion. Liver: The liver is normal in size. No focal lesions. Gallbladder and Biliary Tree: Unremarkable Spleen: Unremarkable Pancreas: The pancreas is grossly normal in appearance. Adrenal Glands: Unremarkable Kidneys: Kidneys are grossly normal without calculi or hydronephrosis. Bladder: Grossly unremarkable for degree of distention. Bowel: The stomach is grossly normal in appearance. Small bowel and colon are normal in caliber and d istribution. The appendix is not visualized; however, no secondary findings of acute appendicitis id entified. Ascites: Absent Lymphadenopathy: No mesenteric, retroperitoneal or periportal lymphadenopathy. Abdominal Wall and Mesentery: Unremarkable. Vasculature: The visualized abdominal aorta is normal in size and caliber. Evaluation of abdominal a nd pelvic vessels is limited due to lack of intravenous contrast. Pelvic Organs: Unremarkable Musculoskeletal: No aggressive focal bony lesions, acute fractures or dislocation. Soft tissues: Unremarkable IMPRESSION: 1. No findings of bowel obstruction. No extravasation of contrast to suggest bowel perforation. 2. Oral contrast noted from the stomach to the rectum. 3. No calcified gallstones 4. No free air or free fluid 5. No abnormal dilatation of the small bowel or colon. Radiation optimization: All CT scans at this facility use at least one of these dose optimization te chniques: automated exposure control mA and/or kV adjustment per patient size (includes targeted exa ms where dose is matched to clinical indication) or iterative reconstruction.
[2024-12-06 05:00] VITALS: BP 126/77; PULSE 74; RESP 18; TEMP 98.7; O2SAT 96
[2024-12-06 05:19] LABS: Anion Gap 7 (5-15); Carbon Dioxide 24 mmol/L (20-31); Potassium 3.7 mmol/L (3.5-5.1); Sodium 141 mmol/L (136-145)
[2024-12-06 05:20] LABS: Calcium 9.3 mg/dL (8.7-10.4); Chloride 110 mmol/L (98-107)
[2024-12-06 05:25] LABS: Glucose 104 mg/dL (74-106)
[2024-12-06 05:29] LABS: BUN/Creatinine Ratio 7.2 (10.0-20.0); Blood Urea Nitrogen < 5 mg/dL (9-23)
[2024-12-06 08:00] VITALS: PULSE 73; RESP 20; O2SAT 99
[2024-12-06 09:00] VITALS: BP 124/79; PULSE 73; RESP 20; TEMP 98.5; O2SAT 99
--- NOTE | 2024-12-06 09:46 | DVHPN2 ---
Progress Note Date Seen: Dec 06, 2024 Medical Necessity Reason Pt with a Central, PICC or Fol: No Objective vital signs Vital Sign Date Time Temp Pulse Resp B/P (MAP) Pulse Ox O2 Delivery O2 Flow Rate FiO2 12/06/24 05:00 98.7 74 18 126/77 (93) 96 98.7 12/05/24 20:00 Room Air* 0 21 Total Intake and Output 12/05/24 12/05/24 12/06/24 15:00 23:00 07:00 Intake Total 50 ml 1100 ml 600 ml Balance 50 ml 1100 ml 600 ml medications Current Medications Medications Dose Ordered Sig/Roderick Route Start Time Stop Time Status Last Admin Dose Admin Ceftriaxone Sodium 50 ml @ 100 mls/hr DAILY@09 IV 12/03/24 09:00 12/06/24 09:35 100 MLS/HR Metronidazole 100 ml @ 100 mls/hr Q8HR IV 12/03/24 06:00 12/06/24 05:54 100 MLS/HR Pantoprazole Sodium 40 mg DAILY IV 12/03/24 10:00 12/06/24 09:35 40 MG Ondansetron HCl 4 mg Q4HP PRN IV 12/02/24 20:15 12/05/24 14:20 4 MG Dextrose/Sodium Chloride 1,000 ml @ 100 mls/hr Q10H IV 12/03/24 11:30 12/06/24 02:39 100 MLS/HR Ketorolac Tromethamine 15 mg Q6HPRN PRN IV 12/04/24 10:00 12/09/24 09:59 12/04/24 20:11 15 MG laboratory and microbiology Laboratory Tests 12/06/24 04:42 12/03/24 19:02 Test 12/06/24 04:42 Range/Units Serum Glucose 104 74-106 mg/dL Problem List/Assessment/Plan Problem List/Assessment/Plan AFEBRILE VSS ABD SOFT NON TENDER JOSÉ MIGUEL CLEAR LIQUIDS REPEAT CT SCAN ABD AND PELVIS WITH PO CONTRAST NEG ADVANCE DIET JOSÉ MIGUEL CLEARED FOR DISCHARGE NURSE AT BEDSIDE Plan discussed with: Patient My Orders My Orders Orders - BRADEN GORE MD Procedure Category Date Status Time Ct Ab Pel With Oral CT 12/05/24 Resulted Con Only 14:14 Dietary Evaluation Review Comments: 1) TPN if NPO >7 days 2) Advance to regular diet as medically feasible Expected Outcomes/Goals: To meet at least 75% estimated needs within 7 days GI symptoms to improve FU 2-3 days BRADEN GORE MD Dec 06, 2024 09:46
[2024-12-06] MEDS ORDERED: METR-344 PO (10:31)
[2024-12-06] MEDS ORDERED: CEPH250C PO ×2 (10:31→11:03)
[2024-12-06 13:00] VITALS: BP 128/84; PULSE 72; RESP 20; TEMP 98; O2SAT 99
[2024-12-06 13:14] VITALS: TEMP 36.9
--- NOTE | 2024-12-06 16:33 | DVHDSRES ---
Discharge Summary Date of Admission Resident Creating Document: CATE CEVALLOS Dec 02, 2024 at 19:56 Date of Discharge: Dec 06, 2024 Admitting Diagnosis #Acute abdominal pain due to acute diverticulitis Labs/Diagnostic Data: Laboratory Results Test 12/06/24 04:42 12/03/24 19:02 12/02/24 15:54 12/02/24 14:50 Sodium Level 141 mmol/L (136-145) Potassium Level 3.7 mmol/L (3.5-5.1) Chloride Level 110 mmol/L (98-107) Carbon Dioxide Level 24 mmol/L (20-31) Anion Gap 7 (5-15) Blood Urea Nitrogen < 5 mg/dL (9-23) Creatinine 0.69 mg/dL (0.550-1.02) Glomerular Filtration Rate Calc 109 mL/min (>90) BUN/Creatinine Ratio 7.2 (10.0-20.0) Serum Glucose 104 mg/dL (74-106) Calcium Level 9.3 mg/dL (8.7-10.4) White Blood Count 8.2 10^3/uL (4.4-10.8) Red Blood Count 3.98 10^6/uL (4.0-5.20) Hemoglobin 12.5 g/dL (12.2-16.2) Hematocrit 37.1 % (36.0-46.0) Mean Corpuscular Volume 93.2 fL (80.0-100.0) Mean Corpuscular Hemoglobin 31.3 pg (28.0-32.0) Mean Corpuscular Hemoglobin Concent 33.6 g/dL (32.0-36.0) Red Cell Distribution Width 13.4 % (11.8-14.3) Platelet Count 258 10^3/uL (140-450) Mean Platelet Volume 9.8 fL (6.9-10.8) Neutrophils (%) (Auto) 67.5 % (37.0-80.0) Lymphocytes (%) (Auto) 22.9 % (10.0-50.0) Monocytes (%) (Auto) 7.9 % (0.0-12.0) Eosinophils (%) (Auto) 1.2 % (0.0-7.0) Basophils (%) (Auto) 0.5 % (0.0-2.0) Neutrophils # (Auto) 5.5 10 ^3/uL (1.6-8.6) Lymphocytes # (Auto) 1.9 10 ^3/uL (0.4-5.4) Monocytes # (Auto) 0.6 10 ^3/uL (0-1.3) Eosinophils # (Auto) 0.1 10 ^3/uL (0-0.8) Basophils # (Auto) 0 10 ^3/uL (0-0.2) Nucleated Red Blood Cells 0.0 % Lactic Acid Level 0.8 mmol/L (0.4-2.0) Beta HCG, Quantitative 0.6 mIU/mL (1.5-4.2) Urine Color Yellow (Yellow) Urine Clarity Turbid (Clear) Urine pH 6.0 (5.0-9.0) Urine Specific [place] 1.029 (1.001-1.035) Urine Protein Trace (Negative) Urine Ketones 3+ (Negative) Urine Blood Trace /uL (Negative) Urine Nitrite Negative (Negative) Urine Bilirubin Negative (Negative) Urine Urobilinogen 2 mg/dL (Negative) Urine Leukocyte Esterase Negative /uL (Negative) Urine RBC 4 /hpf (0 - 4) Urine Microscopic WBC 2 /HPF (0-5) Urine Squamous Epithelial Cells Few /hpf (<5) Urine Bacteria Few /hpf (None Seen) Urine Mucus Few (None Seen) Urine Glucose Normal mg/dL (Normal) Urine Test Negative (Negative) Other Laboratory Tests 12/06/24 04:42 12/03/24 19:02 Brief Hx & Hospital Course: 44-year-old female with no significant past medical history presents for evaluation of 2 day history of Left lower quadrant abdominal pain, which was sudden in onsent and was 8-10/10 intensity, radiating to the back associated with watery diarrhea, no stool was reported. She also had nonbloody vomiting and nausea, and dizziness. She denies any fever, chills, headache. She denies any sick contacts, eating outside and no recent travel. She denies any history of constipation and has regular bowel movements. Brief Hospital course: Patient came with acute abdominal pain in the left lower quadrant associated with nausea and vomiting likely due to acute diverticulitis, for this a CT abdominal scan without contrast was done which showed acute colon diverticulitis with extensive adjacent stranding and possible microperforation. No bowel obstruction, definite rupture, or adjacent abscess. There is extensive underlying colonic diverticulosis. Patient was NPO and then changed to clear liquid diet as tolerated. She was given IV fluids IV ceftriaxone IV metronidazole and pain management as needed. Surgery was consulted and recommended a repeat CT scan abdominal pelvis with contrast, which showed: No findings of bowel obstruction. No extravasation of contrast to suggest bowel perforation, Oral contrast noted from the stomach to the rectum, No calcified gallstones, No free air or free fluid, No abnormal dilatation of the small bowel or colon. This today patient had 3 bowel movements without any significant pain, nausea or vomiting. Patient was stable for discharge and communicated understanding that she has to take oral antibiotics (Keflex and Flagyl) and follow-up with PCP in 1 week. General: Patient alert and oriented in person, place and time. Patient following commands. HEENT: Normocephalic, atraumatic, moist mucous membranes Respiratory/pulmonary: Clear lungs bilaterally, vesicular murmurs present in almost all lung de, no associated crackles or wheezes. Cardiovascular: Normal heart sounds S1 and S2 with no associated murmurs Abdomen: Abdomen nondistended, there is no pain to palpation in any of the abdominal quadrants, no palpable masses. Extremities: There is no peripheral edema present at the lower extremities. Peripheral Pulses: 3+ Radial (R). 3+ Radial (L). 3+ Dorsalis pedis (R). 3+ Dorsalis pedis(L) Skin: No rashes or pruritus, there is no sacral edema present at this time. Neurological: Intact cranial nerves with no focal neurologic deficits Operations or Procedures Exam: CT CT AB PEL WO CON-NO ORAL OR IV History: LLQ, suprapubic pain , diarrhoea Comparison Study: None TECHNIQUE: Multidetector CT of the abdomen was performed from lung bases to pubic symphysis. Imaging was performed without IV contrast. Axial, coronal and sagittal multiplanar reformats were obtained from the axial data set by the technologist. Radiation Dose Information: CT Dose: CTDI volume is 8.97 mGy. Dose-length product is 476.35 mGy*cm FINDINGS: Evaluation of solid organs is limited due to lack of intravenous contrast use. Findings: Lung Bases: No acute or significant lung base finding. Normal heart size. No pleural or pericardial effusion. Liver: The liver is normal in size. No focal lesions. Gallbladder and Biliary Tree: Unremarkable Spleen: Unremarkable Pancreas: The pancreas is grossly normal in appearance. Adrenal Glands: Unremarkable Kidneys: Kidneys are grossly normal without calculi or hydronephrosis. Bladder: Grossly unremarkable for degree of distention. Bowel: The stomach is grossly normal in appearance. Acute sigmoid colon diverticulitis with extensive adjacent stranding and possible microperforation. No bowel obstruction, definite rupture, or adjacent abscess. There is extensive underlying colonic diverticulosis. Normal appendix. Ascites: Absent Lymphadenopathy: No mesenteric, retroperitoneal or periportal lymphadenopathy. Abdominal Wall and Mesentery: Unremarkable. Vasculature: The visualized abdominal aorta is normal in size and caliber. Evaluation of abdominal and pelvic vessels is limited due to lack of intravenous contrast. Pelvic Organs: Unremarkable. trace pelvic free fluid. Musculoskeletal: No aggressive focal bony lesions, acute fractures or dislocation. Soft tissues: Unremarkable IMPRESSION: 1. Acute sigmoid colon diverticulitis with extensive adjacent stranding and possible microperforation. No bowel obstruction, definite rupture, or adjacent abscess. There is extensive underlying colonic diverticulosis. Radiation optimization: All CT scans at this facility use at least one of these dose optimization techniques: automated exposure control mA and/or kV adjustment per patient size (includes targeted exams where dose is matched to clinical indication) or iterative reconstruction. - Exam: CT CT AB PEL WITH ORAL CON ONLY History: Abdominal Pain Comparison Study: CT CT AB PEL WO CON-NO ORAL OR IV on DOS: 12/02/24 TECHNIQUE: Multidetector CT of the abdomen was performed from lung bases to pubic symphysis. Imaging was performed without IV contrast. Axial, coronal and sagittal multiplanar reformats were obtained from the axial data set by the technologist. Radiation Dose Information: CT Dose: CTDI volume is 8.35 mGy. Dose-length product is 396.87 mGy*cm Oral Omnipaque 1000 mL FINDINGS: Evaluation of solid organs is limited due to lack of intravenous contrast use. Findings: Lung Bases: No acute or significant lung base finding. Normal heart size. No pleural or pericardial effusion. Liver: The liver is normal in size. No focal lesions. Gallbladder and Biliary Tree: Unremarkable Spleen: Unremarkable Pancreas: The pancreas is grossly normal in appearance. Adrenal Glands: Unremarkable Kidneys: Kidneys are grossly normal without calculi or hydronephrosis. Bladder: Grossly unremarkable for degree of distention. Bowel: The stomach is grossly normal in appearance. Small bowel and colon are normal in caliber and distribution. The appendix is not visualized; however, no secondary findings of acute appendicitis identified. Ascites: Absent Lymphadenopathy: No mesenteric, retroperitoneal or periportal lymphadenopathy. Abdominal Wall and Mesentery: Unremarkable. Vasculature: The visualized abdominal aorta is normal in size and caliber. Evaluation of abdominal and pelvic vessels is limited due to lack of intravenous contrast. Pelvic Organs: Unremarkable Musculoskeletal: No aggressive focal bony lesions, acute fractures or dislocation. Soft tissues: Unremarkable IMPRESSION: 1. No findings of bowel obstruction. No extravasation of contrast to suggest bowel perforation. 2. Oral contrast noted from the stomach to the rectum. 3. No calcified gallstones 4. No free air or free fluid 5. No abnormal dilatation of the small bowel or colon. Condition at Discharge: Stable Final Diagnosis/Problems List #Acute abdominal pain likely from below #Sepsis due to acute diverticulitis ruled out possible microperforation #Leukocytosis due to sepsis Discharge Disposition: Home Discharge Instruct/Medications Diet: Regular Activity: No Restrictions, As Tolerated Follow Up/Referral: As Per EMR Scheduled Cephalexin (Keflex Capsule), 2 CAP PO BID Metronidazole (Flagyl), 1 TAB PO TID Discharge Statement: "Patient was advised to return to the ER or call 911 if any headaches, dizziness, shortness of breath, chest pain, abdominal pain, bleeding, fevers, or worsening of medical condition. Patient was counseled about treatment plan, medications, possible side effects, patientverbalized understanding. All questions were answered to the best of my ability. This discharge took greater then 30 minutes in planning, reviewing documentation, counseling the patient, and discussing with other team members." ASSESSMENT ASSESSMENT Assessment Acute diverticulitis Date of Service: Dec 06, 2024 Billing Provider: DWAYNE LOPEZ MD Common Visit Codes: 75451-PGT/OBS DISCH DAY >30min CATE CEVALLOS RESIDENT Dec 06, 2024 16:33 DWAYNE LOPEZ MD Dec 06, 2024 23:01
== END 2024-12-06 15:35 | disposition home or self-care (01) | DRG 720 ==
LOC: ER 14:47 → OVERFLOW 19:56 → WEST WING 12-03 17:54
PROVIDERS: ADMIT Internal Medicine
DX: A41.9 Sepsis, unspecified organism (principal); K57.32 Diverticulitis of large intestine without perforation or abscess without bleeding; Z98.51 Tubal ligation status
CPT/HCPCS: 36415; 74176; 80048; 81001; 81025; 83605; 84702; 85025; 96365; 96375; G0378; J1885; J2405; J2470; J3490